=== PATIENT | female | born 1955 | race Caucasian/White ===

== ENCOUNTER → 2017-08-31 08:45 | Outpatient (CLI) | payer BC ==
--- NOTE | ~2017-08-31 | EC ---
PATIENT:GIBRAN LEONARDO DATE OF SERVICE: 08/31/17 SEX: F MEDICAL RECORD: [id number] DATE OF : 55 LOCATION:D[facility] AGE OF PATIENT: 61 ADMISSION DATE: 08/31/17 REFERRING PHYSICIAN: INTERPRETING PHYSICIAN: PEGGY CASTILLO MD ECHOCARDIOGRAM REPORT ECHO CHARGES 4 ECHO COMPLETE CLINICAL DIAGNOSIS: DYSPNEA/A-FIB ECHOCARDIOGRAPHIC MEASUREMENTS (adult normal given) AC root (d.<3.7cm) 2.7 cm LV Septum d (<1.2 cm> 0.9 cm Valve Excursion 1.7 cm LV Septum (systole) 1.3 cm Left Atria (s.<4.0cm> 4.1 cm LVPW d(<1.2cm) 0.9 cm RV (d.<2.3cm) 2.8 cm LVPW (sytole) 1.5 cm LV diastole(<5.6CM) 4.9 cm MV E-F(>70mm/sec) cm LV systole 3.0 cm LVOT Diameter 1.6 cm MV exc.(>10mm) cm Est.ejection fraction (50-75%) % Pericardial Effusion N DOPPLER: LVIT cm/sec A cm/sec E 93.0 cm/sec LA cm/sec RVSP 37.0 mmHg LVOT 67.0 cm/sec AOP1/2T m/s Asc. 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 FINDINGS: 1. Left ventricle does show a regional wall motion abnormality with anterior hypokinesis. Overall, ejection fraction was 40% to 45%. There was also lateral hypokinesis. The patient appears to be in atrial flutter. Inflow characteristics were not revealing for diastolic dysfunction. 2. The left atrium is moderately dilated. ECHOCARDIOGRAM REPORT [id number] GIBRAN LEONARDO 3. Mitral valve has moderate to moderately severe mitral regurgitation. 4. The tricuspid valve has moderate tricuspid regurgitation, RVSP of 40 mmHg. 5. Pulmonic valve shows trace pulmonic insufficiency. There is no pericardial effusion. 6. The right atrium is mildly dilated. 7. The right ventricle is normal size, normal function. FINAL IMPRESSION: In conclusion, the patient has evidence of wall motion abnormalities in addition to decreased LV systolic function. The patient appears to be at least in atrial dysrhythmia. TRANSINT:[id number] Voice Confirmation ID: [id number] DOCUMENT ID: [id number] PEGGY CASTILLO MD at 1020 CC: [id number] DICTATION DATE: 08/31/17 1121 SHANK TAPER: 08/31/17 1343 DEP CLI 08/31/17 [id number] [place] [address]
[~2017-08-31 08:45] MED LIST: BETAPACE 80 MG80 MG PO; XARELTO20 MG PO
[2017-09-03 06:41] VITALS: BMI 25.0
== END | disposition home or self-care (01) ==
LOC: D.ECHO 08-25 10:30
DX: R06.00 Dyspnea, unspecified (principal); I48.91 Unspecified atrial fibrillation

== ENCOUNTER 2017-09-03 06:23 | Outpatient (CLI) | payer BC ==
[~2017-09-03] VITALS: Ht 152.4 cm; Wt 58.2 kg
--- NOTE | ~2017-09-03 | HEMODYNAMI ---
PATIENT:GIBRAN LEONARDO MEDICAL RECORD: [id number] : 55 LOCATION:D.[facility] ADMISSION DATE: 09/03/17 Generatedon:09/03/20178:40 Patient name: GIBRAN LEONARDO Patient #: [id number] SSN: : 1955 Date of study: 09/03/2017 Page: Of Hemodynamic Procedure Report Patient Data Patient Demographics Procedure consent was obtained First Name: GIBRAN Gender: Female Last Name: JORDEN : 1955 [facility] Initial: WOLFGANG Age: 61 year(s) Patient #: [id number] Race: Unknown Additional ID: [id number] Contact details [address]: [address] [place] [address] State: [place] City: [place] Zip code: [address] Admission Admission Data Admission Date: 09/03/2017 Admission Time: 6:23 Procedure Procedure Types Cath Procedure Diagnostic Procedure Cardioversion Miscellaneous Procedures Moderate Sedation up to 15 minutes Procedure Description Procedure Date Procedure Date: 09/03/2017 Procedure Start Time: 8:20 Procedure End Time: 8:37 Procedure Staff Name Function Marco A Castillo MD Performing Physician Alonso Juarez RT Monitor Maryellen Vázquez RT Monitor Abelardo Ramirez RN Nurse Procedure Data Cath Procedure Fluoroscopy Diagnostic fluoroscopy Total fluoroscopy Time: 0 time: 0 min min Diagnostic fluoroscopy Total fluoroscopy dose: 0 dose: 0 mGy mGy Contrast Material Contrast Material Type Amount (ml) Isovue 300 0 Estimated blood loss: 0 ml Procedure Complications No complications Procedure Medications Medication Administration Route Dosage 0.9% NaCl I.V. 100 ml/hr Oxygen 3 l/min Versed I.V. 1 mg Fentanyl I.V. 25 mcg Versed I.V. 1 mg Versed I.V. 1 mg Versed I.V. 1 mg Corvert (1mg/100ml I.V. 0.25 mg NS) Versed I.V. 1 mg Hemodynamics Rest Pre Cath Intra NCS Post Cath Vital Signs Time Heart Resp SPO2 etCO2 NIBP (mmHg) Rhythm Pain Sedation Rate (ipm) (%) (mmHg) Status Level (bpm) 8:12:52 79 18 99 31.4 127/92(109) A-Flutter 0 (11) 10(A) , No pain 8:17:20 83 19 100 31.4 120/90(106) A-Flutter 0 (11) 10(A) , No pain 8:21:51 88 12 100 32.9 118/94(105) A-Flutter 0 (11) 9(A) , No pain 8:26:23 75 12 100 34.4 125/82(102) A-Flutter 0 (11) 9(A) , No pain 8:31:20 74 12 100 33.6 140/84(104) A-Flutter 0 (11) 10(A) , No pain 8:35:53 82 12 100 37.4 113/91(104) A-Flutter 0 (11) 10(A) , No pain Medications Time Medication Route Dose Verified Delivered Reason Notes Effectiven ess by by 8:15:02 0.9% NaCl I.V. 100 Abelardo Abelardo Per ml/hr Lorigan Lorigan physician RN RN 8:16:10 Oxygen 3 Abelardo Abelardo Per l/min Lorigan Lorigan physician RN RN 8:16:24 Versed I.V. 1 mg Abelardo Abelardo for Lorigan Lorigan sedation RN RN 8:16:34 Fentanyl I.V. 25 Abelardo Abelardo for mcg Lorigan Lorigan sedation RN RN 8:18:10 Versed I.V. 1 mg Abelardo Abelardo for Lorigan Lorigan sedation RN RN 8:20:19 Versed I.V. 1 mg Abelardo Abelardo for Lorigan Lorigan sedation RN RN 8:21:33 Versed I.V. 1 mg Abelardo Abelardo for Lorigan Lorigan sedation RN RN 8:30:36 Corvert I.V. 0.25 Abelardo Abelardo for (1mg/100ml mg Lorigan Lorigan arrhythmia NS) RN RN 8:30:46 Versed I.V. 1 mg Abelardo Abelardo for Lorigan Lorigan sedation RN firer marine Log Time Note 7:50:34 Alonso EATON(R) sent for patient. Start room use. 7:50:35 Time tracking: Regular hours 7:50:40 Plan of Care:Hemodynamics will remain stable., Cardiac rhythm will remain stable., Comfort level will be maintained., Respiratory function will remain adequate., Patient/ family verbilizes understanding of procedure., Procedure tolerated without complication., Recovers from procedure without complications.. 8:08:48 Patient arrived from Pre/Post Procedure Room to CCL 1. Patient remains on bed/stretcher for procedure. 8:08:49 Warm blankets applied, and joana hugger turned on for patient comfort. 8:08:50 Correct patient and procedure confirmed by team. 8:08:51 Signed procedure consent form obtained from patient. 8:08:52 ECG and BP/O2 sat monitors applied to patient. 8:11:13 H&P Date Dictated: 09/02/2017 Within 30 days and on chart., H&P Addendum completed by physician on day of procedure. (MUST COMPLETE FOR ALL OUTPATIENTS). 8:11:14 Pre-procedure instructions explained to patient. 8:11:14 Pre-op teaching completed and patient verbalized understanding. 8:11:16 Family in patients room. 8:11:18 Patient NPO since Midnight. 8:11:27 Vital chart was started 8:11:32 Rhythm: atrial fibrillation 8:12:48 Full Disclosure recording started 8:12:51 Is the patient allergic to Iodine/contrast media? No. 8:12:53 Is patient on blood thinner?Yes 8:12:57 ACC The patient was administered the following blood thiners within the last 24 hours: Xarelto 8:12:59 Patient diabetic? No. 8:14:12 Patient not . Patient is over age 55. 8:14:14 Previous problem with sedation/anesthesia? No ? 8:14:16 Snore? No 8:14:17 Sleep apnea? No 8:14:18 Deviated septum? No 8:14:19 Opens mouth fully? Yes 8:14:20 Sticks out tongue? Yes 8:14:22 Airway obstruction? No ? 8:14:27 Dentures? No ? 8:15:02 0.9% NaCl 100 ml/hr I.V. was administered by Abelardo Ramirez RN; Per physician; 8:15:15 Patient pain scale 0/10 ?. 8:15:26 IV patent on arrival in left forearm with 0.9% NaCl at KVO. 8:15:30 Lab results completed and on chart. 8:15:34 Quick Combo opened to sterile field. 8:15:38 Alarms reviewed by Ismael Valdovinos 8:15:50 Quick combo pads placed on patients chest and back. 8:15:54 --------ALL STOP TIME OUT------ 8:15:55 Final Timeout: patient, procedure, and site verified with staff and physician. All members of the team are in agreement. 8:15:59 Physical assessment completed. ASA score P 2 - A patient with mild systemic disease as per Marco A Castillo MD. 8:16:03 Sedation plan: IV Moderate Sedation Medication:Versed, Fentanyl 8:16:10 Oxygen 3 l/min was administered by Abelardo Ramirez RN; Per physician; 8:16:24 Versed 1 mg I.V. was administered by Abelardo Ramirez RN; for sedation; 8:16:34 Fentanyl 25 mcg I.V. was administered by Abelardo Ramirez RN; for sedation; 8:18:10 Versed 1 mg I.V. was administered by Abelardo Ramirez RN; for sedation; 8:20:19 Versed 1 mg I.V. was administered by Abelardo Ramirez RN; for sedation; 8:20:40 Procedure started. 8:20:52 Defibrillator synced and charged to 50 Joules. 8:21:08 Shock delivered. 8:21:11 Unsuccessful cardioversion. 8:21:33 Versed 1 mg I.V. was administered by Abelardo Ramirez RN; for sedation; 8:22:50 Defibrillator synced and charged to 100 Joules. 8:22:52 Shock delivered. 8:23:13 Patient cardioverted to sinus bradycardia. 8:23:59 Pt went back into Atiral Fib/Flutter. 8:27:16 Defib synced and charged to 150 Joules. 8:27:19 Shock delivered. 8:28:23 Unsuccessful cardioversion. 8:29:58 Defibrillator synced and charged to 200 Joules. 8:30:02 Shock delivered. 8:30:20 Unsuccessful cardioversion. 8:30:36 Corvert (1mg/100ml NS) 0.25 mg I.V. was administered by Abelardo Ramirez RN; for arrhythmia; 8:30:46 Versed 1 mg I.V. was administered by Abelardo Ramirez RN; for sedation; 8:30:51 Pt remains in Atrial Fib. 8:31:22 Procedure ended.(Physican Out) 8:31:34 Fluoroscopy time 00.00 minutes. 8:31:35 Fluoroscopy dose: 0 mGy 8:31:35 Flurop Dose total: 0 8:31:37 Contrast amount:Isovue 300 0ml. 8:31:57 Post-procedure physical assessment completed. ASA score P 2 - A patient with mild systemic disease as per Marco A Castillo MD. 8:32:01 Post procedure rhythm: unchanged. 8:32:07 Estimated blood loss: 0 ml 8:32:10 Post procedure instruction explained to patient.Patient verbalizes understanding. 8:32:11 Patient needs reinforcement of post procedure teaching. 8:32:26 Procedure Complication : No complications 8:33:57 Procedure type changed to Cath procedure, Diagnostic procedure, Cardioversion, Miscellaneous Procedures, Moderate Sedation up to 15 minutes 8:34:12 Procedure and supply charges have been captured, reviewed, submitted and are correct. 8:36:07 Vital chart was stopped 8:36:07 See physician's report for complete and final results. 8:36:09 Report given to Pre/Post Procedure Room. 8:36:12 Patient transfered to Pre/Post Procedure Room with Stretcher. 8:37:03 Procedure ended. 8:37:03 Full Disclosure recording stopped 8:37:19 End room use (Document Last) Device Usage Item Manufacture Quantity Catalog Hospital Part Current Minimal Lot# / Name Number Charge Number Stock [facility] Patricia sc# Code nivio 1 [id number] Combo Signature Audit [place] Time Signature Unsigned Intra-Procedure 09/03/2017 Alonso Juarez 8:40:40 AM RT(R) Signatures Monitor : Alonso Juarez RT Signature : Date : Time : Monitor : Maryellen Vázquez Signature : RT Date : Time : [address] [place] [address]
[2017-09-03] MEDS ORDERED: XARELTO20 MG PO (06:28)
[2017-09-03] MEDS ORDERED: BETAPACE 80 MG80 MG PO (06:29)
[2017-09-03 06:41] VITALS: BP 112/89; Ht 152.4 cm; Wt 58.2 kg
[2017-09-03 07:03] LABS: BASOPHILS 0.1 % (0-2); EOSINOPHILS 1.6 % (0-7); HEMATOCRIT 37.6 % (36.0-48.0); HEMOGLOBIN 13.7 g/dL (12-16); IMMATURE GRANULOCYTES 0.1 % (0-5); LYMPHOCYTES 26.4 % (15-50); MCH 33.2 pg (26.0-34.0); MCHC 36.4 g/dL (31.0-37.0); MEAN PLATELET VOLUME 10.5 fL (7.4-10.4); MONOCYTES 7.7 % (2-11); NEUTROPHILS 64.1 % (40-80); PLATELET COUNT 264 10x3/uL (130-400); RBC 4.13 10x6/uL (4.00-5.40); RDW 11.6 % (11.5-14.5); WBC 7.1 10x3/uL (4.8-10.8)
[2017-09-03 07:11] LABS: INR 1.6 (0.85-1.17); PROTIME 18.6 SECONDS (11.6-15.0)
[2017-09-03 07:25] LABS: CALC OSMOLALITY 267 mosm/kg (275-300); CALCIUM 8.9 mg/dL (8.5-10.1); CARBON DIOXIDE 27.4 mmol/L (21.0-32.0); CHLORIDE - SERUM 97 mmol/L (98-107); CREATININE - SERUM 0.7 mg/dL (0.6-1.3); GLUCOSE 97 mg/dL (74-106); POTASSIUM - SERUM 3.3 mmol/L (3.5-5.1); SODIUM 134 mmol/L (136-145); UREA NITROGEN 12 mg/dL (7-18); eGFR NON AFRICAN AMERICAN 90 mL/min (90-120)
== END 2017-09-03 10:12 | disposition home or self-care (01) ==
LOC: D.CATH 06:23
PROVIDERS: Internal Medicine Cardiovascular Disease
DX: I48.91 Unspecified atrial fibrillation (principal); Z01.812 Encounter for preprocedural laboratory examination

== ENCOUNTER → 2017-09-28 20:04 | Outpatient (CLI) | payer BC ==
[2017-09-03 06:41] VITALS: BMI 25.0
== END | disposition home or self-care (01) ==
LOC: D.SLEEP 09-21 20:30
DX: G47.10 Hypersomnia, unspecified (principal)